=== PATIENT | female | born 1995 | race Caucasian/White ===

== ENCOUNTER 2017-02-23 14:26 | Emergency (ER) | payer OTHER, BC ==
[~2017-02-23] VITALS: Ht 170.2 cm; Wt 58.2 kg
[2017-02-23] MEDS ORDERED: VYVANSE60 MG PO (14:53)
[2017-02-23] MEDS ORDERED: VYVANSE30 MG PO (14:53)
[2017-02-23] MEDS ORDERED: DROSPIRENONE-E1 EACH PO (14:54)
[2017-02-23 15:56] LABS: HEMATOCRIT 44.2 % (36.0-46.0); HEMOGLOBIN 15.2 G/DL (11.9-15.5); MCH 29.6 PG (29.0-34.0); MCHC 34.4 G/DL (30.0-36.0); MCV 86.2 FL (83-99); PLATELET COUNT 290 K/uL (156-360); RBC DIS.WIDTH-CV 12.1 % (11.8-14.6); RBC DIS.WIDTH-SD 38.4 % (39-53); RED BLOOD COUNT 5.13 M/uL (3.80-5.20); WHITE BLOOD COUNT 9.3 K/uL (4.1-10.2)
[2017-02-23 16:04] LABS: CHLORIDE 102 mEq/L (99-109); POTASSIUM 4.2 mEq/L (3.7-5.4); SODIUM 137 mEq/L (136-147)
[2017-02-23 16:06] LABS: GLUCOSE 73 mg/dL (70-99)
[2017-02-23 16:10] LABS: CREATININE 0.8 mg/dL (0.6-1.3); GFR ESTIMATE (CALCULATED) > 59 mL/min/
[2017-02-23 16:11] LABS: UREA NITROGEN (BUN) 18 mg/dL (9-23)
[2017-02-23 16:18] LABS: QUANTITATIVE HCG < 4.0 MIU/ML
[2017-02-23] MEDS ORDERED: FLEXERIL10 MG PO (17:53)
[2017-02-23 18:32] VITALS: BP 116/73
== END 2017-02-23 18:35 | disposition home or self-care (01) ==
LOC: EME 14:26
PROVIDERS: Emergency Medicine
DX: S13.9XXA Sprain of joints and ligaments of unspecified parts of neck, initial encounter (principal); M79.631 Pain in right forearm; M79.661 Pain in right lower leg; R51 Headache; V47.5XXA Car driver injured in collision with fixed or stationary object in traffic accident, initial encounter; V44.5XXA Car driver injured in collision with heavy transport vehicle or bus in traffic accident, initial encounter; Y92.410 Unspecified street and highway as the place of occurrence of the external cause; R11.0 Nausea; Z87.891 Personal history of nicotine dependence
CPT/HCPCS: 71045; 72125; 72131; 74177; 80048; 84702; 85027; 99281; 99285; J7030